=== PATIENT | male | born 1985 | race Caucasian/White ===

== ENCOUNTER 2020-02-06 14:01 | Outpatient (CLI) | payer OTHER ==
--- NOTE | 2020-02-06 14:26 | CT ---
NONCONTRAST SINUS CT: HISTORY: Nasal polyps. Difficulty with smell and taste. Evaluate for nasal polyps. FINDINGS: Visualized brain parenchyma is unremarkable. Bilateral ocular lenses are appropriately located. Both globes are intact. Retrobulbar fat is preserved. Symmetric attenuation of the optic nerves and ocular rectus muscles. Visualized aerodigestive tract is patent. No mucosal abnormality. No obvious masses in the oral cavit y. Midline fatty raphae of the tongue cannot be adequately assessed. Oral cavity evaluation is limited by dental amalgam artifact. The osseous margins of the facial bones and sinuses are maintained. There are no erosive or destructi ve changes. Osseous margins of the orbits are maintained. Adequate aeration of the mastoid air cells. There is opacification involving bilateral frontal sinuses, ethmoid air cells, maxillary sinuses and the left sphenoid sinus suggesting multifocal sinus disease. Soft tissue attenuation in bilateral ostiomeatal complexes. Mild leftward deviation of the nasal septum with a bony spur. IMPRESSION: Multilevel sinus opacification with air-fluid level suggesting sinus disease. No erosive or destructi ve changes/hypertrophic changes of the osseous margins of the sinuses. Transcribed Date/Time: 02/06/2020 3:05 PM
== END 2020-02-06 14:02 | disposition home or self-care (01) ==
LOC: SCSCT 14:01
PROVIDERS: ATTEND Allergy & Immunology
DX: J33.9 Nasal polyp, unspecified (principal); J34.89 Other specified disorders of nose and nasal sinuses